=== PATIENT | male | born 1950 | race Caucasian/White ===

== ENCOUNTER → 2017-01-29 | Outpatient (CLI) | payer BC ==
[2017-01-29 10:13] LABS: CHCM 34.6; HCT 44.2 % (39.0-53.0); HDW 2.57; HGB 14.7 gm/dL (13.0-17.5); MCH 30.9 pg (25.0-35.0); MCHC 33.2 g/dL (31.0-37.0); Mean Platelet Volume 9.3; RBC 4.76 m/uL (4.30-5.90); RDW 12.8 % (11.5-15.5); WBC 4.9 k/uL (3.8-10.6)
[2017-01-29 10:25] LABS: Anion Gap 7 mmol/L; Blood Urea Nitrogen 19 mg/dL (9-20); Calcium 9.7 mg/dL (8.4-10.2); Carbon Dioxide 32 mmol/L (22-30); Chloride 103 mmol/L (98-107); Glucose 73 mg/dL (74-99); Non-African American GFR(MDRD) >60 (>60 ml/min/1.73 sqM); Sodium 142 mmol/L (137-145)
== END | disposition home or self-care (01) ==
LOC: LABPAT 09:56
PROVIDERS: ATTEND Urology
DX: Z01.812 Encounter for preprocedural laboratory examination (principal); N40.1 Benign prostatic hyperplasia with lower urinary tract symptoms; Z79.899 Other long term (current) drug therapy
CPT/HCPCS: 36415; 80048; 85027

== ENCOUNTER → 2017-01-30 | Outpatient (CLI) | payer BC | LOC: LABPAT 09:08 | PROVIDERS: ATTEND Anesthesiology | DX: Z01.810 Encounter for preprocedural cardiovascular examination (principal) | CPT/HCPCS: 93005 ==

== ENCOUNTER 2017-02-05 07:52 | Day surgery (SDC) | payer BC ==
[2017-01-29 13:34] VITALS: BMI 32.3
[~2017-02-05 07:52] MED LIST: DEXAMETHASONE SOD PHOSPHATE 10 MG/ML 1 ML VIAL IV ONE; HYDROmorphone 0.5 MG/0.5 ML SYRINGE IVP PRN; LACTATED RINGERS 1,000 ML IV SCH; MIDAZOLAM 2 MG/2 ML VIAL IV PRN; ONDANSETRON 4 MG/2 ML VIAL IVP ONE; ceFAZolin IN SWFI 2 GM/20 ML SYRINGE IVP ONE
[2017-02-05] MEDS ORDERED: LIDOCAINE 1% 20 ML VIAL (10MG/ML) FOR IV START INTRADERMA ONE (08:16)
[2017-02-05] MEDS ORDERED: ePHEDrine SULFATE/0.9% NACL/PF 50 MG/5 ML SYRINGE IV ONE (11:21)
[2017-02-05] MEDS ORDERED: KETOROLAC 30 MG/ML 1 ML VIAL ONE (11:21)
[2017-02-05] MEDS ORDERED: fentaNYL (PF) 50 MCG/ML 2 ML AMP ONE (11:21)
[2017-02-05] MEDS ORDERED: MIDAZOLAM 2 MG/2 ML VIAL ONE (11:21)
[2017-02-05] MEDS ORDERED: FUROSEMIDE 10 MG/ML 2 ML VIAL ONE (11:21)
[2017-02-05] MEDS ORDERED: LIDOCAINE 1% INJ 10MG/ML (20 ML MDV) ONE (11:21)
[2017-02-05] MEDS ORDERED: HYDROmorphone (PF) 1 MG/ML ONE (11:21)
[2017-02-05] MEDS ORDERED: PROPOFOL 10 MG/ML 20 ML VIAL IV ONE (11:21)
[2017-02-05] MEDS ORDERED: LACTATED RINGERS 1,000 ML IV ONE (11:56)
[2017-02-05 13:24] VITALS: TEMP 97.2
[2017-02-05 14:12] VITALS: RESP 18
[2017-02-05 14:35] VITALS: BP 123/60; PULSE 90
--- NOTE | 2017-02-05 15:52 | P.OP ---
Date of Procedure: 02/05/17 Preoperative Diagnosis: BPH with Obstruction Postoperative Diagnosis: Same Procedure(s) Performed: Cystoscopy, Bipolar Transurethral Resection of Prostate (TURP) Anesthesia: LOREE Surgeon: Henry Mcleod Estimated Blood Loss (ml): 100 IV fluids (ml): 1,200 Pathology: other (Prostate chips) Condition: stable Disposition: PACU Indications for Procedure: He is a 66-year-old male treated for acute prostatitis in 2011. A urine culture showed an E. coli UTI. His PSA level at that time was 7.54, but is now stable at 2.6. He is taking Flomax, and bladder emptying is complete. However, he reports bothersome LUTS. Urinary flow studies show a weak stream, and cystoscopy shows an obstructing prostate with a trilobar configuration. Options are as follows: continue tamsulosin, combination medical therapy, and TURP. He has elected to undergo a TURP. Operative Findings: Trilobar BPH, completely obstructing. Description of Procedure: The patient was taken in the operating room and placed in the dorsolithotomy position, The external genitalia was prepped and draped sterilely. The 25- Malian ACMI resectoscope sheath was introduced into the bladder. The bladder was inspected. Both ureteral orifices were of normal anatomic location and configuration, and clear urine effluxed from both. No tumors or foreign bodies were seen. Examination of the prostate revealed complete obstruction with a trilobar configuration. Using the bipolar cutting loop, the median lobe was resected. Next, the lateral lobes were resected down to the surgical capsule. The floor of the prostate was then resected, proximal to the verumontanum. Lastly, any remaining anterior tissue was resected. The prostatic fossa was then carefully examined. The remaining apical tissue was then carefully resected. The resection was carried down to the surgical capsule in all 4 quadrants. The prostatic fossa was then carefully examined, and any areas of bleeding were controlled with electrocautery. Excellent hemostasis was attained. The resectoscope was withdrawn into the bulbous urethra. The external urinary sphincter remained intact. The prostatic fossa was open. The beRecruited evacuator was used to remove all prostate chips from the bladder. These were saved and sent for pathologic examination. The resectoscope was removed, and an 18 Malian Chung catheter was placed. The return was essentially clear. The patient tolerated the procedure well was taken to the recovery room in stable condition.
== END 2017-02-05 16:05 | disposition home or self-care (01) ==
LOC: OR 07:52
PROVIDERS: ATTEND Urology
DX: N40.1 Benign prostatic hyperplasia with lower urinary tract symptoms (principal); N13.8 Other obstructive and reflux uropathy; I10 Essential (primary) hypertension; E78.5 Hyperlipidemia, unspecified; G47.33 Obstructive sleep apnea (adult) (pediatric); Z88.5 Allergy status to narcotic agent; Z88.2 Allergy status to sulfonamides; Z79.82 Long term (current) use of aspirin; Z79.899 Other long term (current) drug therapy
CPT/HCPCS: 52601; J2250; J1100; J1940; J2405; J2001; J3010; J1885; J1170; J2704; 88305

== ENCOUNTER 2018-03-04 16:49 | Observation (INO) | payer BC, MEDICARE ==
--- NOTE | 2018-03-04 17:46 | ED ---
Chest Pain HPI - General Chief Complaint: Chest Pain Stated Complaint: CHEST TIGHTNESS, HIGH BLOOD PRESSURE Time Seen by Provider: 03/04/18 17:15 Source: patient Mode of arrival: ambulatory Limitations: no limitations - Related Data Home Medications Medication Instructions Recorded Confirmed Aspirin [Adult Low Dose Aspirin EC] 81 mg PO HS 01/29/17 03/04/18 Cholecalciferol [Vitamin D3] 2,000 unit PO DAILY 01/29/17 03/04/18 Hydrochlorothiazide 25 mg PO DAILY 01/29/17 03/04/18 Losartan [Cozaar] 50 mg PO BID 01/29/17 03/04/18 Multivitamin [Men's Multi-Vitamin] 1 tab PO DAILY 01/29/17 03/04/18 Anastrozole [Arimidex] 1 mg PO MOWEFR 03/04/18 03/04/18 Fish Oil/Dha/Epa [Fish Oil 1,200 2 cap PO DAILY 03/04/18 03/04/18 mg Fish Oil] Pravastatin Sodium [Pravachol] 20 mg PO DAILY 03/04/18 03/04/18 Allergies Allergy/AdvReac Type Severity Reaction Status Date / Time codeine AdvReac See Comment Verified 03/04/18 17:45 sulfamethoxazole AdvReac See Comment Verified 03/04/18 17:45 [From Bactrim] trimethoprim [From Bactrim] AdvReac See Comment Verified 03/04/18 17:45 Review of Systems ROS Statement: Those systems with pertinent positive or pertinent negative responses have been documented in the HPI. ROS Other: All systems not noted in ROS Statement are negative. EKG Findings - EKG Comments: EKG Findings:: EKG shows normal sinus rhythm rate of 69, ME 170, QRS 90, QTc 428 Past Medical History Past Medical History: Hyperlipidemia, Hypertension History of Any Multi-Drug Resistant Organisms: None Reported Past Surgical History: Cholecystectomy, Prostate Surgery Past Psychological History: No Psychological Hx Reported Smoking Status: Never smoker Past Alcohol Use History: Occasional Past Drug Use History: None Reported General Exam Limitations: no limitations Course Vital Signs 03/04/18 03/04/18 17:05 19:07 Temperature 98.5 F Pulse Rate 71 64 Respiratory 18 18 Rate Blood Pressure 139/81 143/80 O2 Sat by Pulse 97 96 Oximetry Disposition Clinical Impression: Chest pain Disposition: ADMITTED IP TO THIS HOSP Condition: Undetermined Instructions: Chest Pain (ED) Is patient prescribed a controlled substance at d/c from ED?: No Referrals: Dilip Guardado MD [Primary Care Provider] - 1-2 days
[2018-03-04 17:54] LABS: Basophils # (A) 0.1 k/uL (0-0.2); Basophils % (A) 1 %; Eosinophils # (A) 0.2 k/uL (0-0.7); Eosinophils % (A) 3 %; HCT 46.1 % (39.0-53.0); Lymphocytes # (A) 1.6 k/uL (1.0-4.8); Lymphocytes % (A) 24 %; MCH 30.7 pg (25.0-35.0); MCHC 34.8 g/dL (31.0-37.0); MCV 88.2 fL (80.0-100.0); Mean Platelet Volume 9.2; Monocytes # (A) 0.6 k/uL (0-1.0); Monocytes % (A) 10 %; Neutrophils % (A) 61 %; Platelet Count 215 k/uL (150-450); RBC 5.23 m/uL (4.30-5.90); RDW 12.7 % (11.5-15.5); WBC 6.6 k/uL (3.8-10.6)
[2018-03-04 18:07] LABS: Partial Thromboplastin Time 24.7 sec (22.0-30.0); Prothrombin Time 10.6 sec (9.0-12.0)
[2018-03-04 18:09] LABS: ALT 62 U/L (21-72); AST 38 U/L (17-59); Albumin 4.4 g/dL (3.5-5.0); Alkaline Phosphatase 82 U/L (38-126); Anion Gap 8 mmol/L; Blood Urea Nitrogen 17 mg/dL (9-20); Calcium 9.8 mg/dL (8.4-10.2); Carbon Dioxide 29 mmol/L (22-30); Chloride 104 mmol/L (98-107); Glucose 104 mg/dL (74-99); Lipase 54 U/L (23-300); Magnesium 2.1 mg/dL (1.6-2.3); Potassium 4.1 mmol/L (3.5-5.1); Sodium 141 mmol/L (137-145); Total Bilirubin 0.7 mg/dL (0.2-1.3); Total Protein 7.1 g/dL (6.3-8.2)
[2018-03-04 18:12] LABS: Creatine Kinase 128 U/L (55-170)
--- NOTE | 2018-03-04 18:12 | XR ---
EXAMINATION TYPE: XR chest 2V DATE OF EXAM: 03/04/2018 COMPARISON: NONE HISTORY: Chest pain TECHNIQUE: Frontal and lateral views of the chest are obtained. FINDINGS: Heart and mediastinum are normal. Lungs are clear. Diaphragm is normal. Bony thorax appear s normal. There are chest leads. IMPRESSION: Normal chest
[2018-03-04 18:29] LABS: Creatine Kinase MB 1.2 ng/mL (0.0-2.4); Troponin I <0.012 ng/mL (0.000-0.034)
[2018-03-04] MEDS ORDERED: NITROGLYCERIN SL TABS 0.4 MG TAB SUBLINGUAL PRN (21:21)
[2018-03-04] MEDS ORDERED: HEPARIN SODIUM,PORCINE 5,000 UNIT/ML 1 ML VIAL IV PRN (21:21)
[2018-03-04] MEDS ORDERED: ASPIRIN 81 MG PO STA (21:21)
[2018-03-04] MEDS ORDERED: HEPARIN SODIUM,PORCINE 5,000 UNIT/ML 1 ML VIAL IV ONE (21:21)
[2018-03-04] MEDS ORDERED: HEPARIN SOD,PORK IN 0.45% NACL 25,000 UNIT in 0.45% NACL 1 250ML.BAG IV SCH (21:30)
[2018-03-05 00:34] VITALS: BMI 33.0
[2018-03-05 01:35] LABS: Creatine Kinase 109 U/L (55-170)
[2018-03-05 01:48] LABS: Creatine Kinase MB 0.8 ng/mL (0.0-2.4); Troponin I <0.012 ng/mL (0.000-0.034)
[2018-03-05 07:23] LABS: Mean Platelet Volume 8.8; Platelet Count 199 k/uL (150-450)
[2018-03-05 07:53] LABS: Cholesterol 185 mg/dL (<200); Creatine Kinase 91 U/L (55-170); HDL Cholesterol 30 mg/dL (40-60); LDL Cholesterol,Calculated 134 mg/dL (0-99); Triglycerides 107 mg/dL (<150)
[2018-03-05 08:06] LABS: Creatine Kinase MB 0.9 ng/mL (0.0-2.4); Troponin I <0.012 ng/mL (0.000-0.034)
[2018-03-05] MEDS ORDERED: PRAVASTATIN SODIUM 20 MG TAB PO SCH (09:00)
[2018-03-05] MEDS ORDERED: HYDROCHLOROTHIAZIDE 25 MG TAB PO SCH (09:00)
[2018-03-05] MEDS ORDERED: LOSARTAN 50 MG TAB PO SCH (09:00)
[2018-03-05] MEDS ORDERED: METOPROLOL TARTRATE 25 MG TAB PO SCH (09:00)
[2018-03-05] MEDS ORDERED: ASPIRIN 325 MG TAB PO SCH (09:00)
--- NOTE | 2018-03-05 09:34 | P.CRDCN ---
History of Present Illness History of present illness: This is a pleasant 67-year-old male past medical history significant for hypertension and dyslipidemia. He denies history of coronary artery disease or diabetes mellitus. He has significant family history of premature coronary artery disease with his mother, father, brother and both sisters having had either stent placement or valve replacements before the age of 65. He has had 2- 3 stress tests in his lifetime, most recently 5 years ago. He has never seen a prepleater for any reason. We have been asked to see him in consultation for chest pain. He states yesterday after eating lunch with his he started feeling flushed and registered clinical dietitian the face. He decided to check his blood pressure at home and it was elevated 170/90 and 180/100. He called his PCP and went in to have his pressure checked there. On his way to the office he started feeling a tight sensation in his chest in the left precordial region with radiation through to his back in between his shoulder blades. He denies pain in the arm, neck or jaw. The pain was intermittent with no specific aggravating or alleviating factors. He denies associated shortness of breath, dizziness, palpitations, nausea, vomiting or diaphoresis. Once at his PCP office they recommended he come for further evaluation due to his family history. Upon arrival blood pressure was 139/81. He denies any further symptoms of chest pain or back pain. EKG reveals sinus mechanism with no acute ST or T-wave changes. Chest xray is negative for an acute process. Laboratory data reviewed, WBC 6.6, hemoglobin 16, platelets 199, sodium 141, potassium 4.1, creatinine 0.92, magnesium 2.1, cardiac enzymes negative 3, LDL 134, HDL 30. Current cardiac medications include pravastatin 20 mg daily, losartan 50 mg twice a day, hydrochlorothiazide 25 mg daily and aspirin 81 mg daily. At the time of my exam: CONSTITUTIONAL: Denies fever. Denies chills. EYES: Denies blurred vision. Denies vision changes. Denies eye pain. EARS, NOSE, MOUTH & THROAT: Denies headache. Denies sore throat. Denies ear pain. CARDIOVASCULAR: Denies chest pain. Denies shortness of breath. Denies orthopnea. Denies PND. Denies palpitations. RESPIRATORY: Denies cough. GASTROINTESTINAL: Denies abdominal pain. Denies diarrhea. Denies constipation. Denies nausea. Denies vomiting. MUSCULOSKELETAL: Denies myalgias. INTEGUMENTARY: Denies pruitis. Denies rash. NEUROLOGIC: Denies numbness. Denies tingling. Denies weakness. PSYCHIATRIC: Denies anxiety. Denies depression. ENDOCRINE: Denies fatigue. Denies weight change. Denies polydipsia. Denies polyurina. GENITOURINARY: Denies burning, hematuria or urgency with micturation. HEMATOLOGIC: Denies history of anemia. Denies bleeding. Blood pressure 126/68 heart rate 58 afebrile maintaining oxygen saturation on room air GENERAL: This is a 67-year-old male in no apparent distress at the time of my examination. HEENT: Head is atraumatic, normocephalic. Pupils are equal, round. Sclerae anicteric. Conjunctivae are clear. Mucous membranes of the mouth are moist. Neck is supple. There is no jugular venous distention. No carotid bruit is heard. LUNGS: Clear to auscultation no wheezes, rales or rhonchi. No chest wall tenderness is noted on palpation or with deep breathing. HEART: Regular rate and rhythm with short systolic murmur at the base, no rubs or gallops. S1 and S2 heard. ABDOMEN: Soft, nontender. Bowel sounds are heard. No organomegaly noted. EXTREMITIES: No evidence of peripheral edema and no calf tenderness noted. VASCULAR: Radial and dorsalis pedis pulses palpated, no evidence of clubbing. NEUROLOGIC: Patient is awake, alert and oriented x3. ASSESSMENT Chest pain, atypical for angina. An acute coronary event is from ruled out with no EKG evidence of ischemia and negative cardiac enzymes. Hypertension Dyslipidemia PLAN An acute coronary event is from ruled out with no EKG evidence of ischemia and negative cardiac enzymes. Obtain 2-D echocardiogram and Doppler study to assess cardiac structure and function. Perform stress echocardiogram to assess for stress induced ischemia. If stress test is normal he is stable from a cardiac perspective, if abnormal we will consider coronary angiography to further assess the coronary arteries. Thank you kindly for this consultation. Nurse Practitioner note has been reviewed, I agree with a documented findings and plan of care. Patient was seen and examined. Past Medical History Past Medical History: Hyperlipidemia, Hypertension History of Any Multi-Drug Resistant Organisms: None Reported Past Surgical History: Cholecystectomy, Prostate Surgery Past Anesthesia/Blood Transfusion Reactions: Postoperative Nausea & Vomiting ( PONV) Past Psychological History: No Psychological Hx Reported Smoking Status: Never smoker Past Alcohol Use History: Occasional Past Drug Use History: None Reported - Past Family History Father Family Medical History: CVA/TIA, Myocardial Infarction ([place]) Mother Family Medical History: CVA/TIA, Myocardial Infarction ([place]) Brother(s) Family Medical History: Myocardial Infarction ([place]) Additional Family Medical History / Comment(s): Stent Medications and Allergies Home Medications Medication Instructions Recorded Confirmed Type Aspirin [Adult Low Dose Aspirin EC] 81 mg PO HS 01/29/17 03/04/18 History Cholecalciferol [Vitamin D3] 2,000 unit PO DAILY 01/29/17 03/04/18 History Hydrochlorothiazide 25 mg PO DAILY 01/29/17 03/04/18 History Losartan [Cozaar] 50 mg PO BID 01/29/17 03/04/18 History Multivitamin [Men's Multi-Vitamin] 1 tab PO DAILY 01/29/17 03/04/18 History Anastrozole [Arimidex] 1 mg PO MOWEFR 03/04/18 03/04/18 History Ascorbic Acid [Vitamin C] 500 mg PO TID 03/04/18 03/04/18 History Fish Oil/Dha/Epa [Fish Oil 1,200 2 cap PO BID 03/04/18 03/04/18 History mg Fish Oil] Pravastatin Sodium [Pravachol] 20 mg PO DAILY 03/04/18 03/04/18 History Allergies Allergy/AdvReac Type Severity Reaction Status Date / Time codeine AdvReac See Comment Verified 03/04/18 23:37 sulfamethoxazole AdvReac See Comment Verified 03/04/18 23:37 [From Bactrim] trimethoprim [From Bactrim] AdvReac See Comment Verified 03/04/18 23:37 Physical Exam Vitals: Vital Signs Temp Pulse Pulse Resp BP BP Pulse Ox 03/05/18 04:00 98.1 F 58 L 18 126/68 97 03/05/18 03:49 98.1 F 58 L 18 151/93 95 03/04/18 19:07 64 18 143/80 96 03/04/18 17:05 98.5 F 71 18 139/81 97 Intake and Output 03/04/18 03/05/18 03/05/18 22:59 06:59 14:59 Other: # Voids 1 Weight 104.326 kg 104.3 kg Results 03/05/18 06:54 03/04/18 17:30 Cardiac Enzymes 03/04/18 03/04/18 03/05/18 Range/Units 17:30 17:30 00:39 AST 38 (17-59) U/L CK-MB (CK-2) 1.2 0.8 (0.0-2.4) ng/mL Troponin I <0.012 <0.012 (0.000-0.034) ng/mL 03/05/18 Range/Units 06:54 AST (17-59) U/L CK-MB (CK-2) 0.9 (0.0-2.4) ng/mL Troponin I <0.012 (0.000-0.034) ng/mL Coagulation 03/04/18 03/05/18 03/05/18 Range/Units 17:30 00:39 06:54 PT 10.6 (9.0-12.0) sec APTT 24.7 24.2 33.7 H (22.0-30.0) sec Lipids 03/05/18 Range/Units 06:54 Triglycerides 107 (<150) mg/dL Cholesterol 185 (<200) mg/dL HDL Cholesterol 30 L (40-60) mg/dL CBC 03/04/18 03/05/18 Range/Units 17:30 06:54 WBC 6.6 (3.8-10.6) k/uL RBC 5.23 (4.30-5.90) m/uL Hgb 16.0 (13.0-17.5) gm/dL Hct 46.1 (39.0-53.0) % Plt Count 215 199 (150-450) k/uL Comprehensive Metabolic Panel 03/04/18 Range/Units 17:30 Sodium 141 (137-145) mmol/L Potassium 4.1 (3.5-5.1) mmol/L Chloride 104 (98-107) mmol/L Carbon Dioxide 29 (22-30) mmol/L BUN 17 (9-20) mg/dL Creatinine 0.92 (0.66-1.25) mg/dL Glucose 104 H (74-99) mg/dL Calcium 9.8 (8.4-10.2) mg/dL AST 38 (17-59) U/L ALT 62 (21-72) U/L Alkaline Phosphatase 82 (38-126) U/L Total Protein 7.1 (6.3-8.2) g/dL Albumin 4.4 (3.5-5.0) g/dL Current Medications Generic Name Dose Route Start Last Admin Trade Name Freq PRN Reason Stop Dose Admin Aspirin 325 mg 03/05/18 09:00 Aspirin PO DAILY [facility] Heparin Sodium (Porcine) 0 unit 03/04/18 21:21 Heparin IV Q6HR PRN Low PTT Protocol Hydrochlorothiazide 25 mg 03/05/18 09:00 Hydrodiuril PO DAILY [facility] Losartan Potassium 50 mg 03/05/18 09:00 Cozaar PO BID [facility] Metoprolol Tartrate 25 mg 03/05/18 09:00 Lopressor PO BID [facility] Nitroglycerin 0.4 mg 03/04/18 21:21 Nitrostat SUBLINGUAL Q5M PRN Chest Pain Pravastatin Sodium 20 mg 03/05/18 09:00 Pravachol PO DAILY [facility] Intake and Output 03/04/18 03/05/18 03/05/18 22:59 06:59 14:59 Other: # Voids 1 Weight 104.326 kg 104.3 kg 03/05/18 06:54 03/04/18 17:30
[2018-03-05] MEDS ORDERED: CHOLECALCIFEROL 1,000 UNIT TAB PO SCH (11:00)
[2018-03-05] MEDS ORDERED: ASCORBIC ACID 500 MG TAB PO SCH (11:00)
--- NOTE | 2018-03-05 11:51 | ECHOF ---
Referral Reason:cp MEASUREMENTS -------- HEIGHT: 152.4 cm WEIGHT: 103.9 kg BP: RVIDd: 3.7 cm (< 3.3) IVSd: 1.5 cm (0.6 - 1.1) LVIDd: 4.7 cm (3.9 - 5.3) LVPWd: 1.0 cm (0.6 - 1.1) IVSs: 1.6 cm LVIDs: 3.5 cm LVPWs: 1.6 cm LA Diam: 4.7 cm (2.7 - 3.8) LAESV Index (A-L): 41.23 ml/m Ao Diam: 3.1 cm (2.0 - 3.7) AV Cusp: 2.1 cm (1.5 - 2.6) MV EXCURSION: 20.651 mm (> 18.000) MV EF SLOPE: 96 mm/s (70 - 150) EPSS: 0.9 cm MV E Poncho: 0.69 m/s MV DecT: 230 ms MV A Poncho: 0.74 m/s MV E/A Ratio: 0.93 RAP: 5.00 mmHg RVSP: 30.53 mmHg FINDINGS -------- Sinus rhythm. This was a technically adequate study. The left ventricular size is normal. There is moderate concentric left ventricular hypertrophy. O verall left ventricular systolic function is normal with, an EF between 55 - 60 %. The right ventricle is mildly enlarged. LA is severely dilated >40 ml/m2 The right atrial size is normal. There is mild aortic valve sclerosis. There is no evidence of aortic regurgitation. The mitral valve leaflets are mildly thickened. Mild mitral regurgitation is present. Mild tricuspid regurgitation present. Right ventricular systolic pressure is normal at < 35 mmHg. The right ventricular systolic pressure, as measured by Doppler, is 30.53mmHg. Trace/mild (physiologic) pulmonic regurgitation. The aortic root size is normal. There is no pericardial effusion. CONCLUSIONS -------- 1. Sinus rhythm. 2. This was a technically adequate study. 3. The left ventricular size is normal. 4. There is moderate concentric left ventricular hypertrophy. 5. Overall left ventricular systolic function is normal with, an EF between 55 - 60 %. 6. The right ventricle is mildly enlarged. 7. LA is severely dilated >40 ml/m2 8. There is mild aortic valve sclerosis. 9. Mild mitral regurgitation is present. 10. Mild tricuspid regurgitation present. 11. Right ventricular systolic pressure is normal at < 35 mmHg. 12. Trace/mild (physiologic) pulmonic regurgitation. 13. The aortic root size is normal. 14. There is no pericardial effusion. BASKET PATCHER: Priscila Pickett RDCS
[2018-03-05 11:54] VITALS: BP 140/82; PULSE 74; RESP 19; TEMP 97.7
[2018-03-05] MEDS ORDERED: MULTIVITAMINS, THERA 1 EACH TAB PO SCH (12:00)
[2018-03-05] MEDS ORDERED: ANASTROZOLE 1 MG TAB PO SCH (12:00)
--- NOTE | 2018-03-05 12:22 | ECHOS ---
STRESS ECHOCARDIOGRAM INDICATIONS: Chest pain. BASELINE HEART RATE: 64 BASELINE BLOOD PRESSURE: 125/75 MAXIMUM HEART RATE: 131 MAXIMUM BLOOD PRESSURE: 210/97 85% MPHR: 132 100% MPHR: 155 METS: 11.9 MAXIMUM STAGE REACHED: 4 TOTAL EXERCISE TIME: 10:15 CLINICAL INFORMATION: Baseline rhythm is sinus mechanism rate 64, normal axis, intervals, normal echocardiogram. Baseline blood pressure 125/75 mmHg. Patient exercised on Kayden protocol for 10 minute 15 seconds reaching a peak rate 131 beats per minute which is equal to 84% maximum predicted heart rate. Peak blood pressure 210/97 mmHg. Test was terminated secondary to fatigue. There was no chest pain. Electrocardiographic monitoring revealed no evidence of diagnostic ischemic ST deviation. Rare PVCs were noted. FINDINGS: Baseline echocardiogram revealed normal wall motion. At peak exercise, there was normal wall motion augmentation with no hypokinesis or dyskinesis. CONCLUSION: 1. Good exercise tolerance with rare premature ventricular contractions and normal electrocardiographic response to exercise. 2. Normal stress echocardiogram with no evidence of stress induced ischemia. MMODL / IJN: [id number] /
--- NOTE | 2018-03-05 22:31 | DS ---
DISCHARGE SUMMARY HISTORY AND PHYSICAL AND DISCHARGE SUMMARY: DATE OF ADMISSION: 03/04/2018 DATE OF DISCHARGE: 03/05/2018 PRESENTING COMPLAINT: Chest tightness. HISTORY OF PRESENTING COMPLAINT: This is a pleasant 67-year-old patient of Dr. Guardado. Chronic stable medical conditions include hypertension, hyperlipidemia. The patient was eating his lunch with his and then noticed that his face started burning. It felt as if it was on fire. Also felt some tightness in his chest. Also felt his throat was gagging a bit, not feeling well. He took his blood pressure. A couple of readings were above 170 systolic. Decided to come down to the ER, where he did get some aspirin. The patient is rather active otherwise, has no prior cardiac history. Patient was added beta dexter this morning by the camera technician. There were no fevers, chills, cough, and there were no on the chest or the body; actually patient did not really look under the clothes, he stated. REVIEW OF SYSTEMS: CONSTITUTIONAL: As above. HEENT: As above. RESPIRATORY: As above. CARDIOVASCULAR: As above. GASTROINTESTINAL: None. GENITOURINARY: None. MUSCULOSKELETAL: None. DERMATOLOGICAL: As above. LYMPHATICS: None. PSYCHIATRY: None. NEUROLOGICAL: None. PAST MEDICAL HISTORY: Hypertension, hyperlipidemia. PAST SURGICAL HISTORY: Cholecystectomy, prostate surgery. SOCIAL HISTORY: No smoking. Alcohol occasionally. . FAMILY HISTORY: Stroke, myocardial infarction. HOME MEDICATIONS: 1. Pravachol 20 mg a day. 2. Men's multivitamin 1 tablet p.o. daily. 3. Cozaar 50 mg b.i.d. 4. Fish oil 2 capsules p.o. b.i.d. 5. Vitamin D3 2000 units p.o. daily. 6. Vitamin C 500 mg p.o. t.i.d. 7. Arimidex 1 mg p.o. Thursday, Thursday and Thursday. ALLERGIES: CODEINE, BACTRIM. PHYSICAL EXAMINATION: VITAL SIGNS ON PRESENTATION: Temperature 98.5, pulse 71, respiration 18. Blood pressure was up to 151/93. Pulse ox 96% on room air. GENERAL APPEARANCE: Well built; BMI 33. Sitting up, comfortable. EYES: Pupils equal. Conjunctivae normal. HEENT: External appearance of nose and ears normal. Oral cavity normal. NECK: JVD not raised. Mass not palpable. RESPIRATORY: Effort normal. LUNGS: Fair air entry. CARDIOVASCULAR: First and second sounds normal. No edema. ABDOMEN: Soft, non-tender. Liver and spleen not palpable. LYMPHATIC: No lymph node palpable in neck or axillae. PSYCHIATRY: Alert and oriented x3. Mood and affect normal. NEUROLOGICAL: Pupils equal. Cranial nerves grossly intact. Power and sensation grossly intact. INVESTIGATIONS: White count 6.6, hemoglobin 16, platelets normal, hemoglobin normal, troponin x3 negative. LDL 134. EKG tracing, personally reviewed by me, shows normal sinus rhythm. Chest x-ray film, personally reviewed by me, shows no infiltrates. Reports confirm the same. Two-D echocardiogram shows preserved LV function. Stress echocardiogram negative for ischemia. ASSESSMENT: 1. Possible allergic reaction, self-limiting. This patient presented with face on fire. It was flushed and red. Throat was gagging and chest tightness was present. Symptoms did resolve. The high blood pressure may be secondary to the same. 2. Essential hypertension. 3. Hyperlipidemia. PLAN: Patient did undergo a stress echocardiogram, 2D echocardiogram, with all negative results. Troponins were negative. Patient was advised to take his blood pressure daily. Patient has been put on beta dexter per Cardiology. Will continue with the same. Care was discussed with the patient and his . Questions were answered. Patient to follow up with his family doctor accordingly. DISCHARGE MEDICATIONS: Same as home medications, except hydrochlorothiazide to be discontinued. New medications: Lopressor 25 mg p.o. b.i.d., chlorthalidone 25 mg p.o. daily. Follow up with Dr. Sheth on 04/06/2018. Follow up with Dr. Guardado in one week. Blood pressure to be checked daily. MMODL / IJN: [id number] /
== END 2018-03-05 16:48 | disposition home or self-care (01) ==
LOC: EC 16:49 → 1SOBS 21:27
PROVIDERS: ADMIT Hospitalist; ATTEND Hospitalist
DX: R07.89 Other chest pain (principal); R23.2 Flushing; I10 Essential (primary) hypertension; E78.5 Hyperlipidemia, unspecified; J39.2 Other diseases of pharynx; Z79.82 Long term (current) use of aspirin; Z79.899 Other long term (current) drug therapy; Z90.49 Acquired absence of other specified parts of digestive tract; Z88.1 Allergy status to other antibiotic agents; Z88.2 Allergy status to sulfonamides; Z88.5 Allergy status to narcotic agent; Z82.49 Family history of ischemic heart disease and other diseases of the circulatory system; Z82.3 Family history of stroke
CPT/HCPCS: 96374; 99285; 36415; 93005; 93306; 93351; 80061; 80053; 82550 ×2; 82553 ×2; 83690; 83735; 84484 ×2; 85025; 85049; 85610; 85730 ×2; 71046; G0378 ×2; J1644 ×2; S0170

== ENCOUNTER → 2018-06-15 | Outpatient (CLI) | payer MEDICARE ==
--- NOTE | 2018-06-16 01:28 | CONS ---
CONSULTATION This is a consultation note for obstructive sleep apnea. This is a 67-year-old male patient with known history of obstructive sleep apnea. The patient was diagnosed having LUCINA through Dr. Brown's office and patient was given CPAP therapy. Unfortunately, he did not have adequate followup with his sleep physician and he was having difficulties with the high pressure sensation. The baseline polysomnogram is unavailable to me at this point, and this is something that I would like to get a hold of in the future. I noted that the patient had contacted his daughter who happens to be in the medical field and she had made adjustments to his CPAP unit and the patient's current CPAP is set at an APAP mode with a minimum pressure of 9 and a maximum pressure of 12. The patient has a Resmet CPAP unit which is a newer generation air sense AutoSet unit and based on the compliance data the patient has been averaging of 7.9 hours of CPAP use per night. His AHI while on treatment is down to 8.3. Note that at the higher levels of pressure, the patient was more effectively treated. His leak factor is 30 L/minute. He is currently going to bed at around 11:30 to 11:00 pm, waking up 7 to 8 am in the morning. No snoring while on treatment. He used to snore in the past. Denies major hypersomnia or sleepiness. His Venus score is at 14. PAST MEDICAL HISTORY: BPH, obstructive sleep apnea. Hypertension, hyperlipidemia and obesity. PAST SURGICAL HISTORY: Includes prostate surgery, colonoscopy and cholecystectomy. DRUG ALLERGIES: TO BACTRIM AND CODEINE. OUTPATIENT MEDICATION LIST: Includes losartan 50 mg twice a day. Metoprolol 25 mg twice a day. Hydrochlorothiazide 25 mg p.o. per day, pravastatin 20 mg p.o. daily. Vitamin D 50, units daily, aspirin 81 mg p.o. daily, fish oil and multivitamins. SOCIAL HISTORY: The patient is a nonsmoker. No history of alcoholism. No history of IV drugs. FAMILY HISTORY: Positive for sleep apnea and cardiac disease. REVIEW OF SYSTEMS: 12-point review of system was done. Appears very much somnolent and sleepy prior to his treatment. He had issues with nocturia and dry mouth and he had also issues with restlessness in lower extremities. No history of anxiety or depression. No heartburn or chest pain or shortness of breath. PHYSICAL EXAMINATION: BP is 126/78, pulse 56, respirations 16, temperature 98.6, saturation 99% on room air. Height is 5 feet 9 inches, weight is 231. BMI is 34.1, neck size 18. General appearance is calm and comfortable. Head is atraumatic, normocephalic. NECK: Supple. There is no JVD. No goiter or neck masses. Mallampati class IV. LUNGS: Clear to auscultation. HEART: Sounds regular rate and rhythm. Normal S1, S2. No S3. No murmurs. ABDOMEN: Soft, nontender. No organomegaly. EXTREMITIES: No edema. No cyanosis or clubbing. Neurological is alert x3. No focal neurological deficits. PSYCHIATRIC: Negative for anxiety or depression. Skin is negative for any wounds or ulceration. IMPRESSION: 1. Obstructive sleep apnea. Currently on APAP, minimum of 9 and maximum of 12. We would like to track down his original polysomnogram. 2. Hypersomnia, Venus score of 14. With the lowering and adjustment on the CPAP unit, the patient has developed more apneas and his CPAP pressure setting needs to be further adjusted in addition to his mask interface knowing that he is still having a considerable amount of leaks around the mask. 3. Benign prostatic hypertrophy. 4. Hypertension. 5. Hyperlipidemia. 6. Obesity. PLAN: 1. Encourage weight loss. 2. Change APAP into a minimum pressure of 9, maximum pressure of 20 and this will allow the patient to utilize higher pressure if needed to maintain an AHI of less than 5. 3. I offered the patient a DreamWear full face mask under the nose small size which seem to be much more comfortable compared to the Simplus 1 that he is currently using. 4. The patient will see me back in 30 to 90 days to assess clinical response and compliance. and will make further adjustments. From this point on he will be followed up in our sleep center for any future sleep apnea issues should they arise. 5. We will continue to follow. MMODL / IJN: [id number] /
== END ==
LOC: SLEEP 13:03
PROVIDERS: ATTEND Internal Medicine Critical Care Medicine
DX: G47.33 Obstructive sleep apnea (adult) (pediatric) (principal); N40.0 Benign prostatic hyperplasia without lower urinary tract symptoms; I10 Essential (primary) hypertension; E78.5 Hyperlipidemia, unspecified; E66.9 Obesity, unspecified; Z99.89 Dependence on other enabling machines and devices; Z88.2 Allergy status to sulfonamides; Z88.5 Allergy status to narcotic agent; Z79.899 Other long term (current) drug therapy; Z68.34 Body mass index [BMI] 34.0-34.9, adult
CPT/HCPCS: 99211

== ENCOUNTER → 2018-08-10 | Outpatient (CLI) | payer MEDICARE ==
--- NOTE | 2018-08-10 17:27 | PN ---
PROGRESS NOTE 67-year-old male coming in for a followup. The patient is doing well. The only issue is that the DreamWear nose pillow that was given to this patient is making some whistling noises which is making the uncomfortable and the patient is looking for alternatives. I checked the compliancy data. The patient has been averaging around 6.4 hours of CPAP use per night. The patient has been very compliant with the treatment. The patient is currently on an APAP with a minimum pressure of 9 and a maximum pressure of 20 and average pressure utilized with a CPAP machine is 10.7. The leak is around 32 L/minute and AHI is down to 4. As such, the patient is well treated. He is still complaining of some tiredness and sleepiness and he takes a nap after coming back from work. No substance abuse. No head trauma. No history of depression. REVIEW OF SYSTEMS: Fourteen-point review of system was done. Positive findings are mentioned above in the history of present illness. No significant dryness in the mouth. No headaches. No altered mentation. No anxiety. No depression. No head trauma. No heartburn or indigestion. No chest pain. No respiratory distress. No swelling in the lower extremities. No other complaints otherwise such as sleep walking or sleep talking or any unusual behavior while asleep. PHYSICAL EXAMINATION: Current vital signs, BP is 141/67, pulse 52, respirations 16, temperature 98.1, saturation 95% on room air. GENERAL APPEARANCE: Calm, comfortable. HEAD is atraumatic, normocephalic. NECK: Supple. No JVD. No goiter or neck masses. LUNGS: Clear to auscultation. HEART: Sounds regular rate and rhythm. Normal S1, S2. No S3, S4. No murmurs. ABDOMEN: Soft, nontender. No organomegaly. EXTREMITIES: No edema. No cyanosis or clubbing. NEUROLOGIC: The patient is alert x3. No focal neurological deficits. PSYCHIATRIC: Negative for anxiety or depression. IMPRESSION: 1. Symptomatic obstructive sleep apnea. The patient is well treated with an APAP, minimum pressure of 9, maximum pressure of 20. Compliance data was checked. 2. Residual hypersomnia despite being adequately treated with CPAP therapy. [place] score is elevated at 17. 3. Benign prostatic hypertrophy. 4. Hypertension. PLAN: 1. Continue APAP therapy. 2. Offer this patient two different masks, one of them was a Brevida nose mask and the other one is an AirFit N30I under the nose and the patient will try both of these masks and get back to me if this is something that he would like to use in the future. He also has a DreamWear under the nose pillows that he can utilize as backup. 3. His compliance data looks great. The patient is well treated. Apnea score less than 5 while on treatment. The patient complaining of some residual hypersomnia or sleepiness. If there is no other secondary cause for hypersomnia, the patient may need to be stimulated with Provigil and this will be discussed with him at a later stage. His treatment is successful. Will continue to follow. See me back in a year's time in followup. MMDYLANL / IJN: [id number] /
== END ==
LOC: SLEEP 14:18
PROVIDERS: ATTEND Internal Medicine Critical Care Medicine
DX: G47.33 Obstructive sleep apnea (adult) (pediatric) (principal); N40.0 Benign prostatic hyperplasia without lower urinary tract symptoms; I10 Essential (primary) hypertension; Z99.89 Dependence on other enabling machines and devices

== ENCOUNTER → 2019-11-01 | Outpatient (CLI) | payer MEDICARE ==
--- NOTE | 2019-11-01 17:12 | PN ---
PROGRESS NOTE A 68-year-old male patient with COPD, coming in for annual check, still on CPAP therapy, minimum pressure of 9, maximum pressure of 20 while being on APAP mode using a DreamWear and 30 I nose piece. Doing well. No specific complaints. Compliance data looks great and I saw some emergence of central events. In general, he has been averaging around 6.9 hours of CPAP use per night, CPAP use for more than 4 hours is above 80%. His average pressure is at 12.6 cm of water. Leak is in the order of 25 L and his AHI is down to 9.1, 7 of which is central. No history of any congestive heart failure. No history of coronary artery disease. No history of atrial fibrillation. No head trauma. No CVA. REVIEW OF SYSTEMS: A 14-point review of system was done, positive findings are mentioned earlier. HISTORY OF PRESENT ILLNESS: No major hypersomnia or sleepiness during the day and the patient is widely alert and awake. MEDICATION: The patient is on losartan 50 mg p.o. daily, Klor-Con 25 mg p.o. daily, pravastatin 20 mg p.o. daily, vitamin D 50 mcg p.o. daily, aspirin 81 mg p.o. daily, multivitamin 1 tablet a day, metoprolol 25 mg twice a day, and anastrozole 10 mg 3 times a week. PHYSICAL EXAMINATION: BP is 118/72, pulse 65, respirations 16, temperature 97.5, saturation 97% on room air. Weight is 220. GENERAL APPEARANCE: Calm, comfortable. HEAD: Atraumatic, normocephalic. NECK: Supple. There is no JVD. No goiter or neck mass. Mallampati class 4. LUNGS: Clear to auscultation. HEART: Sounds are regular rate and rhythm, normal S1, S2. No murmurs. ABDOMEN: Soft, nontender, there is no organomegaly. EXTREMITIES: No edema, no cyanosis or clubbing. IMPRESSION: 1. Symptomatic obstructive sleep apnea. Continues to be successfully treated on APAP, minimum pressure of 9, maximum pressure of 20. Central events have been noted in small amounts without any underlying history of cardiac or neurologic disease. No signs of any congestive heart failure, atrial fibrillation at this point in time. 2. Hypersomnia recovered. 3. BPH. 4. Hypertension. PLAN: 1. Continue APAP therapy. 2. Implement good sleep hygiene measures. 3. Consider an echocardiogram if this has not been done based on some limited central events noted on his CPAP compliancy. 4. Implement good sleep hygiene measures and see me back in a year's time in followup. MMODL / IJN: [id number] /
== END | disposition home or self-care (01) ==
LOC: SLEEP 15:58
PROVIDERS: ATTEND Internal Medicine Critical Care Medicine
DX: G47.33 Obstructive sleep apnea (adult) (pediatric) (principal); G47.10 Hypersomnia, unspecified; J44.9 Chronic obstructive pulmonary disease, unspecified; I10 Essential (primary) hypertension; N40.0 Benign prostatic hyperplasia without lower urinary tract symptoms; Z99.89 Dependence on other enabling machines and devices

== ENCOUNTER → 2020-01-17 | Outpatient (CLI) | payer MEDICARE ==
--- NOTE | 2020-01-18 10:56 | ECHOF ---
Referral Reason:G47.33 Obstructive sleep apnea MEASUREMENTS -------- HEIGHT: 175.3 cm WEIGHT: 99.8 kg BP: RVIDd: 4.6 cm (< 3.3) IVSd: 1.1 cm (0.6 - 1.1) LVIDd: 4.5 cm (3.9 - 5.3) LVPWd: 1.1 cm (0.6 - 1.1) IVSs: 1.5 cm LVIDs: 3.2 cm LVPWs: 1.7 cm LAESV Index (A-L): 39.89 ml/m Ao Diam: 3.3 cm (2.0 - 3.7) AV Cusp: 2.2 cm (1.5 - 2.6) MV EXCURSION: 25.081 mm (> 18.000) MV EF SLOPE: 140 mm/s (70 - 150) EPSS: 0.3 cm MV E Poncho: 0.70 m/s MV DecT: 303 ms MV A Poncho: 0.80 m/s MV E/A Ratio: 0.88 AV maxP.62 mmHg AV meanP.99 mmHg RAP: 5.00 mmHg RVSP: 31.82 mmHg FINDINGS -------- Sinus rhythm. This was a technically adequate study. The left ventricular size is normal. There is mild concentric left ventricular hypertrophy. Overa ll left ventricular systolic function is normal with, an EF between 55 - 60 %. The diastolic fillin g pattern is normal for the age of the patient 11.78. The right ventricle is severely enlarged. LA is moderately dilated 34-39 ml/m2 The right atrium is mildly enlarged. Interatrial and interventricular septum intact. There is moderate aortic valve sclerosis. Trace amount of aortic regurgitation. There is mild ao rtic stenosis present. Peak/mean gradient across the Aortic Valve is 20.62mmHg / 9.99mmHg. Mild mitral regurgitation is present. Mild tricuspid regurgitation present. There is borderline pulmonary artery hypertension. The righ t ventricular systolic pressure, as measured by Doppler, is 31.82mmHg. Trace/mild (physiologic) pulmonic regurgitation. The aortic root size is normal. IVC Not well visulized. There is no pericardial effusion. CONCLUSIONS -------- 1. The left ventricular size is normal. 2. There is mild concentric left ventricular hypertrophy. 3. Overall left ventricular systolic function is normal with, an EF between 55 - 60 %. 4. The diastolic filling pattern is normal for the age of the patient 11.78 5. The right ventricle is severely enlarged. 6. LA is moderately dilated 34-39 ml/m2 7. The right atrium is mildly enlarged. 8. There is moderate aortic valve sclerosis. 9. Trace amount of aortic regurgitation. 10. There is mild aortic stenosis present. 11. Peak/mean gradient across the Aortic Valve is 20.62mmHg / 9.99mmHg. 12. Mild mitral regurgitation is present. 13. Mild tricuspid regurgitation present. 14. There is borderline pulmonary artery hypertension. 15. The right ventricular systolic pressure, as measured by Doppler, is 31.82mmHg. 16. Trace/mild (physiologic) pulmonic regurgitation. [employer]: Arti Mejia RDCS
== END | disposition home or self-care (01) ==
LOC: RADECHMAIN 14:51
PROVIDERS: ATTEND Family Medicine
DX: I08.3 Combined rheumatic disorders of mitral, aortic and tricuspid valves (principal); I37.1 Nonrheumatic pulmonary valve insufficiency; I27.21 Secondary pulmonary arterial hypertension
CPT/HCPCS: 93306

== ENCOUNTER → 2020-07-24 | Outpatient (CLI) | payer MEDICARE ==
--- NOTE | 2020-07-24 12:24 | ECHOF ---
Referral Reason:I51.7 Cardiomegaly MEASUREMENTS -------- HEIGHT: 175.3 cm WEIGHT: 104.3 kg BP: RVIDd: 3.5 cm (< 3.3) IVSd: 1.1 cm (0.6 - 1.1) LVIDd: 5.3 cm (3.9 - 5.3) LVPWd: 1.2 cm (0.6 - 1.1) IVSs: 1.5 cm LVIDs: 3.5 cm LVPWs: 1.1 cm LAESV Index (A-L): 29.09 ml/m Ao Diam: 3.2 cm (2.0 - 3.7) AV Cusp: 1.8 cm (1.5 - 2.6) MV EXCURSION: 20.477 mm (> 18.000) MV EF SLOPE: 88 mm/s (70 - 150) EPSS: 0.4 cm MV E Poncho: 0.49 m/s MV DecT: 232 ms MV A Poncho: 0.70 m/s MV E/A Ratio: 0.71 AV maxP.13 mmHg AV meanP.23 mmHg RAP: 5.00 mmHg RVSP: 26.20 mmHg FINDINGS -------- Sinus rhythm. This was a technically adequate study. LV size, wall thickness and systolic function are normal, with an EF greater than 55%. The left karon tricular size is normal. The diastolic filling pattern is normal for the age of the patient 12.67. The right ventricle is normal in size. LA is midly dilated 29-33ml/m2. The right atrial size is normal. There is mild aortic valve sclerosis. Peak/mean gradient across the Aortic Valve is 14.13mmHg / 6.2 3mmHg. The mitral valve is normal. Mild mitral regurgitation is present. The tricuspid valve appears structurally normal. Mild tricuspid regurgitation present. Right vent ricular systolic pressure is normal at < 35 mmHg. There is no pulmonic regurgitation present. The aortic root size is normal. There is no pericardial effusion. CONCLUSIONS -------- 1. LV size, wall thickness and systolic function are normal, with an EF greater than 55%. 2. LA is midly dilated 29-33ml/m2. 3. There is mild aortic valve sclerosis. 4. Peak/mean gradient across the Aortic Valve is 14.13mmHg / 6.23mmHg. 5. Mild mitral regurgitation is present. 6. Mild tricuspid regurgitation present. 7. There is no pericardial effusion. [facility] NURSE: Priscila Pickett RDCS
== END | disposition home or self-care (01) ==
LOC: RADECHMAIN 10:56
PROVIDERS: ATTEND Family Medicine
DX: I08.3 Combined rheumatic disorders of mitral, aortic and tricuspid valves (principal)
CPT/HCPCS: 93306

== ENCOUNTER → 2020-12-25 | Outpatient (CLI) | payer MEDICARE ==
--- NOTE | 2020-12-25 17:42 | PN ---
PROGRESS NOTE Sean is 70, coming in for annual check regarding obstructive sleep apnea. The patient is a long-time CPAP user and currently is using a CPAP in an APAP mode with a minimum pressure of 9, maximum pressure of 20 with an AirFit N30i nose mask, medium size. Over the past one year the patient has gained around 6 pounds. His weight is up to 226. [place] score is currently at 8. He is utilizing his machine every night. He is wearing the machine an average of 7.6 hours per night. His average pressure delivered by the machine is around 12.6 cm of water and his AHI is down to 8. Leak is on the order of 31 L/minute. No other new complaints otherwise for now. He has a known history of hypertension and hyperlipidemia, which is currently under adequate control. The patient also has symptoms of BPH, which is currently inactive and stable. He is waking up refreshed during the day. No naps during the day. No history of any motor vehicle accident because of feeling drowsy or sleepy. No cardiac arrhythmias have been noted. REVIEW OF SYSTEMS: Fourteen-point review of systems was done. Positive findings are all mentioned above in history of present illness. No other changes otherwise. PHYSICAL EXAMINATION: BP is 131/69, pulse 63, respirations 24, temperature 97.1, saturation 97% on room air. Height is 5 feet 9 inches. Weight is 226 and BMI 32.8. [place] score is 8. GENERAL APPEARANCE: Calm, comfortable. Head is atraumatic, normocephalic. NECK: Supple. No JVD. No goiter or neck masses. Mallampati class 4. LUNGS: Clear to auscultation. Heart sounds are regular rate and rhythm. Normal S1, S2. No S3, S4. No murmurs. ABDOMEN: Soft, nontender. No organomegaly. EXTREMITIES: No edema. No cyanosis or clubbing. IMPRESSION: 1. Symptomatic obstructive sleep apnea, currently on APAP, pressure minimum of 9, maximum of 20. Treatment remains successful and the patient is using an AirFit N30i nose mask. 2. Hypersomnia, improved. [place] score is down to 8. 3. Benign prostatic hypertrophy. 4. Hypertension. 5. Hyperlipidemia. PLAN: 1. Continue APAP therapy at the same level of pressures. 2. Refill this patient's supplies, including the AirFit N30i nose mask. 3. Treatment is successful. 4. See me back in a year's time in followup. MMODL / IJN: [id number] /
== END ==
LOC: SLEEP 15:20
PROVIDERS: ATTEND Internal Medicine Critical Care Medicine
DX: G47.33 Obstructive sleep apnea (adult) (pediatric) (principal); E78.5 Hyperlipidemia, unspecified; I10 Essential (primary) hypertension; N40.0 Benign prostatic hyperplasia without lower urinary tract symptoms; Z99.89 Dependence on other enabling machines and devices; Z88.2 Allergy status to sulfonamides; Z88.5 Allergy status to narcotic agent

== ENCOUNTER 2021-05-28 11:39 | Emergency (ER) | payer MEDICARE ==
[2021-05-28 11:46] VITALS: BP 134/76; PULSE 75; RESP 18; TEMP 98.8
[2021-05-28] MEDS ORDERED: SODIUM CHLORIDE 0.9% 500 ML 500 ML IV STA (12:24)
--- NOTE | 2021-05-28 12:31 | ED ---
General Adult HPI - General Chief complaint: Urogenital Stated complaint: UTI Time Seen by Provider: 05/28/21 12:15 Source: patient, family, RN notes reviewed, old records reviewed Mode of arrival: ambulatory Limitations: no limitations - History of Present Illness Initial comments: 70-year-old male patient presents with his complaining of dysuria for the past 10 days. Patient states he has been being treated by his primary care doctor's office for over a month for urinary tract infection. He was put on one antibiotic and finished it but the symptoms returned. Patient was placed on Cipro May 14, states he finished that medication and his symptoms have returned again. He has chills, body aches and burning with urination, told by his PCP to come to the ER for possible sepsis. He does have a history of prostatectomy. He denies any nausea vomiting diarrhea chest pain or shortness of breath -: days(s) (10) Radiation: non-radiation Severity scale (1-10): 7 Quality: aching (body aches) Consistency: constant Improves with: none Associated Symptoms: fever/chills, other (dysuria) - Related Data Home Medications Medication Instructions Recorded Confirmed Aspirin [Adult Low Dose Aspirin EC] 81 mg PO DAILY 01/29/17 05/28/21 Cholecalciferol [Vitamin D3 (25 2,000 unit PO DAILY 01/29/17 05/28/21 Mcg = 1000 Iu)] Losartan [Cozaar] 50 mg PO BID 01/29/17 05/28/21 Multivitamin [Men's Multi-Vitamin] 1 tab PO DAILY 01/29/17 05/28/21 Anastrozole [Arimidex] 1 mg PO MOWEFR 03/04/18 05/28/21 Ascorbic Acid [Vitamin C] 1,000 mg PO DAILY 03/04/18 05/28/21 Atorvastatin [Lipitor] 20 mg PO HS 05/28/21 05/28/21 Ubidecarenone [Co Q-10] 200 mg PO DAILY 05/28/21 05/28/21 Previous Rx's Medication Instructions Recorded Chlorthalidone 25 mg PO DAILY #30 tab 03/05/18 Metoprolol Tartrate [Lopressor] 25 mg PO BID #60 tab 03/05/18 Cephalexin [Keflex] 500 mg PO Q6HR #40 cap 05/28/21 Allergies Allergy/AdvReac Type Severity Reaction Status Date / Time codeine AdvReac See Comment Verified 05/28/21 12:51 sulfamethoxazole AdvReac See Comment Verified 05/28/21 12:51 [From Bactrim] trimethoprim [From Bactrim] AdvReac See Comment Verified 05/28/21 12:51 Review of Systems ROS Statement: Those systems with pertinent positive or pertinent negative responses have been documented in the HPI. ROS Other: All systems not noted in ROS Statement are negative. Past Medical History Past Medical History: Hyperlipidemia, Hypertension, Prostate Disorder History of Any Multi-Drug Resistant Organisms: None Reported Past Surgical History: Cholecystectomy, Prostate Surgery Past Anesthesia/Blood Transfusion Reactions: Postoperative Nausea & Vomiting (PONV) Past Psychological History: No Psychological Hx Reported Smoking Status: Never smoker Past Alcohol Use History: Occasional Past Drug Use History: None Reported - Past Family History Father Family Medical History: CVA/TIA, Myocardial Infarction (MD) Mother Family Medical History: CVA/TIA, Myocardial Infarction (MD) Brother(s) Family Medical History: Myocardial Infarction (MD) Additional Family Medical History / Comment(s): Stent General Exam Limitations: no limitations General appearance: alert, in no apparent distress Head exam: Present: atraumatic, normocephalic ENT exam: Present: mucous membranes moist Neck exam: Present: full ROM. Absent: tenderness, meningismus, lymphadenopathy, thyromegaly Respiratory exam: Present: normal lung sounds bilaterally. Absent: respiratory distress, accessory muscle use Cardiovascular Exam: Present: regular rate. Absent: JVD GI/Abdominal exam: Present: soft. Absent: tenderness Extremities exam: Present: pedal edema (trace). Absent: tenderness, calf tenderness Back exam: Present: normal inspection. Absent: tenderness, CVA tenderness (R), CVA tenderness (L), rash noted Neurological exam: Present: alert, oriented X3 Psychiatric exam: Present: normal affect, normal mood Skin exam: Present: warm, dry, normal color. Absent: cyanosis, diaphoretic Course Vital Signs 05/28/21 11:40 Temperature 98.8 F Pulse Rate 75 Respiratory 18 Rate Blood Pressure 134/76 O2 Sat by Pulse 96 Oximetry Medical Decision Making - Medical Decision Making 70-year-old male patient presents with his complaining of dysuria for the past 10 days. Treated by his PCP twice with antibiotics, most recently Cipro. Patient states the culture came back positive for E. coli. Was sent for evaluation of possible sepsis. No evidence of leukocytosis. Electrolytes are unremarkable. Urinalysis shows large leukocyte esterase, 94 WBC and many bacteria. Patient was given 2 g of Rocephin IV in the emergency room. He was given a prescription for Keflex after discussing the case with his primary care doctor's office [facility]. Patient is afebrile in the emergency room, vital signs are stable. He denies any nausea or vomiting. Patient was also directed to follow up with his primary care doctor this week and Dr. Mcleod for recurrent UTI. I also advised patient if his symptoms worsen he can return back to the emergency room especially with inability to urinate, increased pain or fevers. Patient and are agreeable to this plan of care. Case discussed with Dr. Morales. - Lab Data Result diagrams: 05/28/21 12:49 05/28/21 12:49 Lab Results 05/28/21 05/28/21 05/28/21 Range/Units 12:26 12:49 12:49 WBC 8.7 (3.8-10.6) k/uL RBC 4.52 (4.30-5.90) m/uL Hgb 14.5 (13.0-17.5) gm/dL Hct 40.8 (39.0-53.0) % MCV 90.4 (80.0-100.0) fL MCH 32.0 (25.0-35.0) pg MCHC 35.4 (31.0-37.0) g/dL RDW 12.5 (11.5-15.5) % Plt Count 172 (150-450) k/uL MPV 10.3 Neutrophils % 75 % Lymphocytes % 8 % Monocytes % 11 % Eosinophils % 1 % Basophils % 1 % Neutrophils # 6.6 (1.3-7.7) k/uL Lymphocytes # 0.7 L (1.0-4.8) k/uL Monocytes # 1.0 (0-1.0) k/uL Eosinophils # 0.1 (0-0.7) k/uL Basophils # 0.1 (0-0.2) k/uL Sodium 137 (137-145) mmol/L Potassium 3.4 L (3.5-5.1) mmol/L Chloride 101 (98-107) mmol/L Carbon Dioxide 27 (22-30) mmol/L Anion Gap 9 mmol/L BUN 18 (9-20) mg/dL Creatinine 0.98 (0.66-1.25) mg/dL Est GFR (CKD-EPI)AfAm >90 (>60 ml/min/1.73 sqM) Est GFR (CKD-EPI)NonAf 80 (>60 ml/min/1.73 sqM) Glucose 87 (74-99) mg/dL Plasma Lactic Acid Jesus Alberto (0.7-2.0) mmol/L Calcium 9.0 (8.4-10.2) mg/dL Total Bilirubin 1.4 H (0.2-1.3) mg/dL AST 46 (17-59) U/L ALT 45 (4-49) U/L Alkaline Phosphatase 77 (38-126) U/L Total Protein 6.6 (6.3-8.2) g/dL Albumin 3.8 (3.5-5.0) g/dL Amylase 49 (30-110) U/L Lipase 41 (23-300) U/L Urine Color Yellow Urine Appearance Cloudy (Clear) Urine pH 7.5 (5.0-8.0) Ur Specific [place] 1.019 (1.001-1.035) Urine Protein Trace H (Negative) Urine Glucose (UA) Negative (Negative) Urine Ketones Negative (Negative) Urine Blood Negative (Negative) Urine Nitrite Positive (Negative) Urine Bilirubin Negative (Negative) Urine Urobilinogen 2.0 (<2.0) mg/dL Ur Leukocyte Esterase Large H (Negative) Urine RBC 5 (0-5) /hpf Urine WBC 94 H (0-5) /hpf Ur Squamous Epith Cells 1 (0-4) /hpf Urine Bacteria Many H (None) /hpf Hyaline Casts 1 (0-2) /lpf Urine Mucus Occasional H (None) /hpf 05/28/21 Range/Units 12:49 WBC (3.8-10.6) k/uL RBC (4.30-5.90) m/uL Hgb (13.0-17.5) gm/dL Hct (39.0-53.0) % MCV (80.0-100.0) fL MCH (25.0-35.0) pg MCHC (31.0-37.0) g/dL RDW (11.5-15.5) % Plt Count (150-450) k/uL MPV Neutrophils % % Lymphocytes % % Monocytes % % Eosinophils % % Basophils % % Neutrophils # (1.3-7.7) k/uL Lymphocytes # (1.0-4.8) k/uL Monocytes # (0-1.0) k/uL Eosinophils # (0-0.7) k/uL Basophils # (0-0.2) k/uL Sodium (137-145) mmol/L Potassium (3.5-5.1) mmol/L Chloride (98-107) mmol/L Carbon Dioxide (22-30) mmol/L Anion Gap mmol/L BUN (9-20) mg/dL Creatinine (0.66-1.25) mg/dL Est GFR (CKD-EPI)AfAm (>60 ml/min/1.73 sqM) Est GFR (CKD-EPI)NonAf (>60 ml/min/1.73 sqM) Glucose (74-99) mg/dL Plasma Lactic Acid Jesus Alberto 1.0 (0.7-2.0) mmol/L Calcium (8.4-10.2) mg/dL Total Bilirubin (0.2-1.3) mg/dL AST (17-59) U/L ALT (4-49) U/L Alkaline Phosphatase (38-126) U/L Total Protein (6.3-8.2) g/dL Albumin (3.5-5.0) g/dL Amylase (30-110) U/L Lipase (23-300) U/L Urine Color Urine Appearance (Clear) Urine pH (5.0-8.0) Ur Specific [place] (1.001-1.035) Urine Protein (Negative) Urine Glucose (UA) (Negative) Urine Ketones (Negative) Urine Blood (Negative) Urine Nitrite (Negative) Urine Bilirubin (Negative) Urine Urobilinogen (<2.0) mg/dL Ur Leukocyte Esterase (Negative) Urine RBC (0-5) /hpf Urine WBC (0-5) /hpf Ur Squamous Epith Cells (0-4) /hpf Urine Bacteria (None) /hpf Hyaline Casts (0-2) /lpf Urine Mucus (None) /hpf Disposition Clinical Impression: UTI (urinary tract infection) Disposition: HOME SELF-CARE Condition: Good Instructions (If sedation given, give patient instructions): Urinary Tract Infection in Men (ED) Additional Instructions: Take Keflex 500 mg 4 times a day for the next 10 days and follow-up with your urologist Dr. Mcleod this week. Return to the emergency room with any new or concerning symptoms including fever, abdominal or back pain or nausea vomiting. Prescriptions: Cephalexin [Keflex] 500 mg PO Q6HR #40 cap Is patient prescribed a controlled substance at d/c from ED?: No Referrals: Dilip Guardado MD [Primary Care Provider] - 1-2 days Henry Mcleod MD [STAFF PHYSICIAN] - 1-2 days Time of Disposition: 13:48
[2021-05-28 12:59] LABS: Appearance,Urine Cloudy (Clear); Bacteria,Urine Many /hpf; Bilirubin,Urine Negative (Negative); Blood,Urine Negative (Negative); Color,Urine Yellow; Glucose,Urine (UA) Negative (Negative); Hyaline Casts,Urine 1 /lpf (0-2); Ketones,Urine Negative (Negative); Leukocyte Esterase,Urine Large (Negative); Mucus,Urine Occasional /hpf; Nitrite,Urine Positive (Negative); PH, Urine 7.5 (5.0-8.0); Protein,Urine Trace (Negative); RBC,Urine 5 /hpf (0-5); Specific Gravity,Urine 1.019 (1.001-1.035); Squamous Epithelial Cell,Urine 1 /hpf (0-4); WBC,Urine 94 /hpf (0-5)
[2021-05-28 13:06] LABS: Basophils # (A) 0.1 k/uL (0-0.2); Basophils % (A) 1 %; Eosinophils # (A) 0.1 k/uL (0-0.7); Eosinophils % (A) 1 %; HCT 40.8 % (39.0-53.0); HGB 14.5 gm/dL (13.0-17.5); Lymphocytes # (A) 0.7 k/uL (1.0-4.8); Lymphocytes % (A) 8 %; MCHC 35.4 g/dL (31.0-37.0); MCV 90.4 fL (80.0-100.0); Mean Platelet Volume 10.3; Monocytes % (A) 11 %; Neutrophils # (A) 6.6 k/uL (1.3-7.7); Neutrophils % (A) 75 %; Platelet Count 172 k/uL (150-450); RBC 4.52 m/uL (4.30-5.90); RDW 12.5 % (11.5-15.5); WBC 8.7 k/uL (3.8-10.6)
[2021-05-28 13:12] LABS: ALT 45 U/L (4-49); AST 46 U/L (17-59); African American GFR (CKD) >90 (>60 ml/min/1.73 sqM); Albumin 3.8 g/dL (3.5-5.0); Alkaline Phosphatase 77 U/L (38-126); Amylase 49 U/L (30-110); Anion Gap 9 mmol/L; Blood Urea Nitrogen 18 mg/dL (9-20); Carbon Dioxide 27 mmol/L (22-30); Chloride 101 mmol/L (98-107); Glucose 87 mg/dL (74-99); Lipase 41 U/L (23-300); Non-African American GFR(CKD) 80 (>60 ml/min/1.73 sqM); Potassium 3.4 mmol/L (3.5-5.1); Sodium 137 mmol/L (137-145); Total Bilirubin 1.4 mg/dL (0.2-1.3); Total Protein 6.6 g/dL (6.3-8.2)
== END 2021-05-28 14:47 | disposition home or self-care (01) ==
LOC: EC 11:39
DX: N39.0 Urinary tract infection, site not specified (principal); E78.5 Hyperlipidemia, unspecified; I10 Essential (primary) hypertension; Z79.82 Long term (current) use of aspirin; Z88.1 Allergy status to other antibiotic agents; Z88.2 Allergy status to sulfonamides; Z88.5 Allergy status to narcotic agent; Z90.49 Acquired absence of other specified parts of digestive tract
CPT/HCPCS: 99283; 96365; 36415; 80053; 82150; 83605; 83690; 85025; 81001; 87040; 87086; J0696

== ENCOUNTER 2022-03-05 08:45 | Day surgery (SDC) | payer MEDICARE ==
[~2022-03-05 08:45] MED LIST changes: -DEXAMETHASONE SOD PHOSPHATE 10 MG/ML 1 ML VIAL IV ONE; -HYDROmorphone 0.5 MG/0.5 ML SYRINGE IVP PRN; +LIDOCAINE 1% (10MG/ML) FOR IV START INTRADERMA PRN; -MIDAZOLAM 2 MG/2 ML VIAL IV PRN; -ONDANSETRON 4 MG/2 ML VIAL IVP ONE; -ceFAZolin IN SWFI 2 GM/20 ML SYRINGE IVP ONE
[2022-03-05 09:33] VITALS: RESP 16; TEMP 97
[2022-03-05] MEDS ORDERED: ONDANSETRON 4 MG/2 ML VIAL ONE (10:14)
[2022-03-05] MEDS ORDERED: PROPOFOL 10 MG/ML 20 ML VIAL IV ONE (10:14)
--- NOTE | 2022-03-05 10:31 | P.PCN ---
Date of Procedure: 03/05/22 Procedure(s) Performed: BRIEF HISTORY: Patient is a 71-year-old pleasant white male scheduled for an elective colonoscopy as a part of screening for colon cancer/positive cologuard. PROCEDURE PERFORMED: Colonoscopy. PREOPERATIVE DIAGNOSIS: Screening for colon cancer/polyps cologuard. IV sedation per Anesthesia. PROCEDURE: After informed consent was obtained, the patient, was brought into the endoscopy unit. IV sedation was administered by Anesthesia under continuous monitoring. Digital rectal examination was normal. Initially the Olympus CF-160 flexible video colonoscope was then inserted in the rectum, gradually advanced into the cecum without any difficulty. Careful examination was performed as the scope was gradually being withdrawn. Ileocecal valve and the appendiceal orifice were visualized and appeared normal. Prep was excellent. Mucosa of the cecum, ascending colon, transverse colon, descending colon, sigmoid colon, and rectum appeared normal. Retroflexion was performed in the rectum and small internal hemorrhoids were seen. The patient tolerated the procedure well. IMPRESSION: Normal-appearing colon from rectum to cecum with no evidence of colorectal neoplasia. Small Internal hemorrhoids. RECOMMENDATIONS: Findings of this examination were discussed with the patient a s well as his family. He was advised to have a repeat colonoscopy in 10 years..
[2022-03-05 11:16] VITALS: BP 121/63; PULSE 64
== END 2022-03-05 11:27 | disposition home or self-care (01) ==
LOC: ORWHC2ENDO 08:45
PROVIDERS: ATTEND Internal Medicine Gastroenterology
DX: Z12.11 Encounter for screening for malignant neoplasm of colon (principal); K64.8 Other hemorrhoids; I10 Essential (primary) hypertension; E78.5 Hyperlipidemia, unspecified; G47.33 Obstructive sleep apnea (adult) (pediatric); Z79.899 Other long term (current) drug therapy; Z90.49 Acquired absence of other specified parts of digestive tract; Z90.79 Acquired absence of other genital organ(s); Z88.1 Allergy status to other antibiotic agents; Z88.5 Allergy status to narcotic agent
CPT/HCPCS: G0121; J2405; J2704; 45378

== ENCOUNTER → 2022-07-14 | Outpatient (CLI) | payer MEDICARE ==
--- NOTE | 2022-07-15 08:44 | CA ---
Transthoracic Echo Report Name: Sean Guillen Age: 71 Gender: M : 1950 Exam Date: 07/14/2022 12:30 Exam Location: [facility] Ht (in): 69 Wt (lb): 220 Ordering Physician: Dilip Guardado MD Attending/Referring Phys: Symone Valentino PAC [employer] Terell Avilez RDCS Procedure CPT: Indications: R01.1 cardiac murmur Cardiac Hx: Technical Quality: Good Contrast 1: Total Dose (mL): Contrast 2: Total Dose (mL): MEASUREMENTS (Male / Female) Normal Values 2D ECHO LV Diastolic Diameter PLAX 3.9 cm 4.2 - 5.9 / 3.9 - 5.3 cm LV Systolic Diameter PLAX 2.7 cm LV Fractional Shortening PLAX 32.0 % IVS Diastolic Thickness 1.1 cm 0.6 - 1.0 / 0.6 - 0.9 cm IVS Systolic Thickness 1.5 cm LVPW Diastolic Thickness 1.3 cm 0.6 - 1.0 / 0.6 - 0.9 cm LVPW Systolic Thickness 1.8 cm LV Relative Wall Thickness 0.6 RV Internal Dim ED PLAX 4.9 cm LVOT Diameter 2.0 cm Aortic Root Diameter 2.7 cm LA Systolic Diameter LX 3.8 cm 3.0 - 4.0 / 2.7 - 3.8 cm LV Diastolic Volume MOD BP 124.4 cm??? 67 - 155 / 56 - 104 cm??? LV Systolic Volume MOD BP 42.6 cm??? 22 - 58 / 19 - 49 cm??? LV Ejection Fraction MOD BP 65.8 % >= 55 % LV Stroke Volume MOD BP 81.8 cm??? LV Diastolic Volume MOD 4C 126.0 cm??? LV Systolic Volume MOD 4C 49.7 cm??? LV Ejection Fraction MOD 4C 60.6 % LV Stroke Volume MOD 4C 76.3 cm??? LV Diastolic Length 4C 8.4 cm LV Systolic Length 4C 6.9 cm LV Diastolic Volume MOD 2C 120.3 cm??? LV Systolic Volume MOD 2C 36.7 cm??? LV Ejection Fraction MOD 2C 69.5 % LV Stroke Volume MOD 2C 83.6 cm??? LV Diastolic Length 2C 8.2 cm LV Systolic Length 2C 6.7 cm Ascending Aorta Diameter 2.7 cm M-MODE Aortic Root Diameter MM 3.0 cm LA Systolic Diameter MM 3.2 cm LA Ao Ratio MM 1.1 MV E Point Septal Separation 1.4 cm AV Cusp Separation MM 1.9 cm DOPPLER AV Peak Velocity 169.9 cm/s AV Peak Gradient 11.5 mmHg LVOT Peak Velocity 101.1 cm/s LVOT Peak Gradient 4.1 mmHg AV Area Cont Eq pk 1.9 cm??? MV Deceleration [place] 169.6 cm/s??? Mitral E Point Velocity 42.0 cm/s Mitral A Point Velocity 64.6 cm/s Mitral E to A Ratio 0.6 MV Deceleration Time 247.5 ms MV E' Velocity 6.0 cm/s Mitral E to MV E' Ratio 7.0 TR Peak Velocity 217.6 cm/s TR Peak Gradient 18.9 mmHg Right Ventricular Systolic Press 28.9 mmHg PV Peak Velocity 109.4 cm/s PV Peak Gradient 4.8 mmHg FINDINGS Left Ventricle Left ventricular ejection fraction is estimated at 55-60 %. Borderline left ventricular hypertrophy. Grade 1 diastolic dysfunction. Normal systolic function. Right Ventricle Normal right ventricular size and function. RVSP- 29 mm Hg Right Atrium Normal right atrial size. Left Atrium Normal left atrial size. Mitral Valve Mitral valve thickened. Trace mitral regurgitation. Aortic Valve Trileaflet aortic valve. Tricuspid Valve Mild tricuspid regurgitation. Pulmonic Valve Trace to mild pulmonic regurgitation. Pericardium Normal pericardium. No pericardial effusion. Aorta Normal size aortic root and proximal ascending aorta. CONCLUSIONS Technically difficult study for interpretation Normal LV systolic function. The EF is 55-60% Previewed by: Dr. Sreekanth Willis MD (Electronically Signed) Final Date: 15 July 2022 08:43
== END | disposition home or self-care (01) ==
LOC: RADECHMAIN 12:18
PROVIDERS: ATTEND Family Medicine
DX: R01.1 Cardiac murmur, unspecified (principal)
CPT/HCPCS: 93306

== ENCOUNTER → 2023-01-20 | Outpatient (CLI) | payer MEDICARE ==
--- NOTE | 2023-01-20 16:41 | P.PN ---
Progress Note - Text Progress Note Date: 01/20/23 On 01/20/2023, seeing the patient in follow-up regarding his obstructive sleep apnea. The patient is known to me and is a long-term CPAP user. He remains compliant to CPAP therapy and currently is an APAP mode pressures of 9/20 cm of water. He is trying to lose weight. His weight remains stable at 222. No snoring while on CPAP therapy. No major hypersomnia or sleepiness during the day. He is known to have hypertension which is under adequate control. He is also known to have hyperlipidemia and BPH. No chest pain. No angina. No palpitations. No A. fib. No hypersomnia or sleepiness during the day. I checked the machine and the machine is functional. The patient is utilizing the machine every night and his overall compliancy is in order of 100%. He has achieved more than 4 hours of usage 28 over the past 30 days. His average pressure delivered by the machines around 12.7 cm of water. His leak is around 31 L/m and his AHI is down to 8.8. No snoring. No other complaints otherwise BP is 136/82 with a pulse of 61 and a respiration of 18 and the temperature is 98.2. His [place] score is at 12. His pulse ox is 95% on room air oxygen. The patient appeared well nourished and normally developed. Vital signs as documented. Head exam is unremarkable. No scleral icterus or corneal arcus noted. Neck is without jugular venous distension, thyromegaly, or carotid bruits. Carotid upstrokes are brisk bilaterally. Lungs are clear to auscultation and percussion. Cardiac exam reveals the PMI to be normally sized and situated. Rhythm is regular. First and second heart sounds normal. No murmurs, rubs or gallops. Abdominal exam reveals normal bowel sounds, no masses, no organomegaly and no aortic enlargement. Extremities are nonedematous and both femoral and pedal pulses are normal.Examination of the skin revealed no evidence of significant rashes, suspicious appearing nevi or other concerning lesions. Neurologically, the patient is awake and alert and the patient does not have any focal neurological deficit. Cranial nerves are essentially intact. Assessment Symptoms of obstructive sleep apnea adequately treated with APAP therapy pressures of 9/20 cm of water. Adequate compliance data. BPH Hypertension Hyperlipidemia Obesity Previous history of Covid 19 infection spring Plan No new issues for now. The machine is functional. Keep the same settings. Encourage weight loss. Refill all of his supplies insulin results mask and tubing filters. The patient will see him back in the follow-up. No other complaints otherwise for now.
== END ==
LOC: 3 N SLEEP 15:14
PROVIDERS: ATTEND Internal Medicine Critical Care Medicine
DX: G47.33 Obstructive sleep apnea (adult) (pediatric) (principal); E66.9 Obesity, unspecified; E78.5 Hyperlipidemia, unspecified; I10 Essential (primary) hypertension; N40.0 Benign prostatic hyperplasia without lower urinary tract symptoms; Z86.16 Personal history of COVID-19; Z88.5 Allergy status to narcotic agent; Z88.2 Allergy status to sulfonamides; Z88.1 Allergy status to other antibiotic agents; Z79.899 Other long term (current) drug therapy
CPT/HCPCS: 99212